=== PATIENT | female | born 2000 | race Caucasian/White ===

== ENCOUNTER 2018-07-10 02:24 | Emergency (ER) | payer SELFPAY ==
--- NOTE | 2018-07-10 02:44 | ED ---
Substance Abuse/Use - HPI Summary HPI Summary: HPI LIMITED DUE TO LEVEL 5 CAVEAT - ETOH INTOXICATION This patient is a 18 year old F brought in by ambulance to [facility] with a chief complaint of alcohol intoxication that began IS/[employer]. - History Of Current Complaint Chief Complaint: EDSubstanceAbuse Stated Complaint: "ETOH" PER EMS Time Seen by Provider: 07/10/18 02:30 Hx Obtained From: Patient Ingestion History: Type/Name Of Drug - ETOH Overdose Characteristics: Oral - Allergies/Home Medications Allergies/Adverse Reactions: Allergies Allergy/AdvReac Type Severity Reaction Status Date / Time No Known Allergies Allergy Verified 07/10/18 02:46 Home Medications: Home Medications NK [No Home Medications Reported] 07/10/18 [History Confirmed 07/10/18] PMH/Surg Hx/FS Hx/Imm Hx Previously Healthy: No - PMHx LIMITED DUE TO LEVEL 5 CAVEAT - ETOH INTOXICATION Review of Systems - ROS Summary Review of Systems Summary: ROS LIMITED DUE TO LEVEL 5 CAVEAT - ETOH INTOXICATION All Other Systems Reviewed And Are Negative: No Physical Exam - Summary Physical Exam Summary: PE LIMITED DUE TO LEVEL 5 CAVEAT - ETOH INTOXICATION Appearance: Well appearing, no pain distress Skin: warm, dry, reflects adequate perfusion Head/face: normal Eyes: EOMI, AYAZ ENT: normal Neck: supple, non-tender Respiratory: CTA, breath sounds present Cardiovascular: RRR, pulses symmetrical Abdomen: non-tender, soft Musculoskeletal: normal, strength/ROM intact Neuro: normal, sensory motor intact, A&Ox3 Triage Information Reviewed: Yes Vital Signs Reviewed: Yes Diagnostics - Laboratory Result Diagrams: 07/10/18 02:46 07/10/18 02:46 Lab Statement: Any lab studies that have been ordered have been reviewed, and results considered in the medical decision making process. Course/Dx - Course Course Of Treatment: LIMITED DUE TO LEVEL 5 CAVEAT - ETOH INTOXICATION. This patient is a 18 year old F brought in by ambulance to [facility] with a chief complaint of alcohol intoxication that began IS/[employer]. Physical Exam Findings: Nml. Bloodwork obtained. Patient will be discharged with follow up from PCP. The patient is agreeable with this plan. - Diagnoses Differential Diagnosis/HQI/PQRI: Positive: Alcohol Abuse Provider Diagnoses: Alcohol intoxication Discharge - Sign-Out/Discharge Documenting (check all that apply): Patient Departure - Discharge home Patient Received Moderate/Deep Sedation with Procedure: No - Discharge Plan Condition: Stable Disposition: HOME Patient Education Materials: Alcohol Intoxication (ED) Referrals: [facility] [place] [facility] REFERRAL [Outside] - 2 Days Additional Instructions: RETURN TO THE EMERGENCY DEPARTMENT FOR NEW OR WORSENING SYMPTOMS - Billing Disposition and Condition Condition: STABLE Disposition: Home - Attestation Statements Document Initiated by Lucero: Yes Documenting Scribe: Asuncion Alexander Provider For Whom Lucero is Documenting (Include Credential): Dr. Darwin Anderson MD Scribe Attestation: IAsuncion scribed for Dr. Darwin Anderson MD on 07/10/18 at 0425. Scribe Documentation Reviewed: Yes Provider Attestation: The documentation as recorded by the Asuncion morales accurately reflects the service I personally performed and the decisions made by me, Dr. Darwin Anderson MD Status of Scribe Document: Viewed
[2018-07-10 02:53] LABS: ABS Basophils 0.1 10^3/ul (0-0.2); ABS Eosinophils 0.1 10^3/ul (0-0.6); ABS Lymphocytes 2.1 10^3/ul (1.0-4.8); ABS Monocytes 0.2 10^3/ul (0-0.8); ABS Neutrophils 2.5 10^3/ul (1.5-7.7); ABS Nucleated RBC 0 10^3/ul; Eosinophil % 1.4 %; Hematocrit 41 % (33-41); Hemoglobin 13.6 g/dL (12.0-16.0); Lymphocyte % 43.3 %; Mean Corpuscular HGB Conc 34 g/dL (31-36); Mean Corpuscular Hemoglobin 29 pg (27-31); Mean Corpuscular Volume 86 fL (80-97); Mean Platelet Volume 7.4 fL (7.4-10.4); Nucleated Red Blood Cells % 0.1; Platelet Count 241 10^3/uL (150-450); Red Cell Distribution Width 13 % (10.5-15); White Blood Count 4.8 10^3/uL (3.5-10.8)
[2018-07-10 03:09] LABS: Albumin 4.3 g/dL (3.2-5.2); Albumin/Globulin Ratio 1.5 (1-3); BUN/Creatinine Ratio 19.2 (8-20); Calcium 8.3 mg/dL (8.6-10.3); EGFR African American 113.9 (>60); EGFR Non-African American 94.2 (>60); Globulin 2.8 g/dL (2-4); Potassium 3.2 mmol/L (3.5-5.0); Total Bilirubin 0.3 mg/dL (0.2-1.0); Total Protein 7.1 g/dL (6.4-8.9)
[2018-07-10 03:55] VITALS: BP 121/65
== END 2018-07-10 03:50 | disposition home or self-care (01) ==
LOC: ED 02:24
DX: F10.129 Alcohol abuse with intoxication, unspecified (principal); Y90.7 Blood alcohol level of 200-239 mg/100 ml
CPT/HCPCS: 36415; 80053; 80320; 85025; 99282; G0480